=== PATIENT | female | born 1995 | race Caucasian/White ===

== ENCOUNTER 2019-03-17 08:49 | Outpatient (CLI) | payer OTHER | END 2019-03-17 16:50 | disposition home or self-care (01) | LOC: LAB 08:49 | DX: N62 Hypertrophy of breast (principal) ==

== ENCOUNTER → 2019-06-16 11:38 | Outpatient (CLI) | payer OTHER | END | disposition home or self-care (01) | LOC: LAB 11:38 | DX: E03.8 Other specified hypothyroidism (principal) ==

== ENCOUNTER 2019-07-18 14:01 | Outpatient (CLI) | payer OTHER | END 2019-07-18 14:08 | disposition home or self-care (01) | LOC: RAD 14:01 | DX: S90.32XA Contusion of left foot, initial encounter (principal) ==

== ENCOUNTER 2019-08-15 12:48 | Outpatient (CLI) | payer OTHER | END 2019-08-15 12:53 | disposition home or self-care (01) | LOC: LAB 12:48 | DX: Z34.81 Encounter for supervision of other normal pregnancy, first trimester (principal) ==

== ENCOUNTER 2020-03-29 09:00 | Outpatient (CLI) | payer OTHER | END 2020-03-29 12:37 | disposition home or self-care (01) | LOC: NST 09:00 | PROVIDERS: ATTEND Obstetrics & Gynecology Maternal & Fetal Medicine | DX: Z34.83 Encounter for supervision of other normal pregnancy, third trimester (principal) ==